=== PATIENT | male | born 1940 | race Caucasian/White ===

== ENCOUNTER 2024-03-26 23:32 | Emergency (ER) | payer MEDICARE ==
[~2024-03-26] VITALS: Ht 175.3 cm; Wt 61.4 kg
[2024-03-26 23:47] VITALS: TEMP 98.5
[2024-03-27 00:16] LABS: APPEARANCE,URINE CLEAR (CLEAR); BILIRUBIN,URINE NEGATIVE (NEGATIVE); COLOR,URINE LIGHT YELLOW (YELLOW); GLUCOSE, URINE (UA) NEGATIVE (NEGATIVE); KETONES,URINE NEGATIVE (NEGATIVE); LEUKOCYTE ESTERASE ,URINE NEGATIVE (NEGATIVE); NITRATE,URINE NEGATIVE (NEGATIVE); OCCULT BLOOD,URINE NEGATIVE (NEGATIVE); PH,URINE 5.5 (5.0-8.0); PH,URINE DRUG SCREEN 5.5 (5.0-8.0); PROTEIN,URINE NEGATIVE (NEGATIVE); SPECIFIC GRAVITIY, URINE 1.019 (1.003-1.030); UROBILINOGEN,URINE <=1.0 mg/dL (<=1.0)
[2024-03-27 00:24] LABS: ALCOHOL, URINE DRUG SCREEN NEGATIVE (NEGATIVE); AMPHET/METH SCREEN,URINE NEGATIVE (NEGATIVE); BARBITURATE SCREEN, URINE NEGATIVE (NEGATIVE); BENZODIAZEPINES SCREEN,URINE NEGATIVE (NEGATIVE); CANNABINOID SCREEN,URINE NEGATIVE (NEGATIVE); COCAINE SCREEN,URINE NEGATIVE (NEGATIVE); METHADONE SCREEN, URINE NEGATIVE (NEGATIVE); OPIATE SCREEN,URINE NEGATIVE (NEGATIVE); PHENCYCLIDINE SCREEN,URINE NEGATIVE (NEGATIVE)
[2024-03-27] MEDS: SODIUM CHLORIDE 0.9% 1,000 ML IV ONE (00:41)
[2024-03-27 00:57] LABS: BASOPHILS % (AUTO) 0.3 % (0.0-2.0); EOSINOPHILS % (AUTO) 0.4 % (1.0-6.0); HEMOGLOBIN 12.5 g/dL (13.5-17.5); LYMPHOCYTES # (AUTO) 0.6 K/uL (1.0-4.8); MEAN CORPUSCULAR HEMOGLOBIN 30.8 pg (26.0-34.0); MEAN CORPUSCULAR HGB CONC 32.8 G/dL (31.0-37.0); MEAN CORPUSCULAR VOLUME 94 fL (80-100); MONOCYTES # (AUTO) 0.8 K/uL (0.1-1.0); MONOCYTES % (AUTO) 7.9 % (2.0-9.0); NEUTROPHILS # (AUTO) 9.1 K/uL (1.8-7.7); PLATELET COUNT (AUTO) 231 K/uL (150-450); RED BLOOD CELL COUNT(AUTO) 4.05 MIL/uL (4.50-5.90); RED CELL DISTRIBUTION WIDTH 15.3 % (11.5-14.5); WHITE BLOOD COUNT (AUTO) 10.7 K/uL (4.5-11.0)
[2024-03-27 01:00] LABS: NEUTROPHILS % (AUTO) 85.4 % (40.0-70.0)
[2024-03-27 01:06] LABS: ANION GAP 9 mmol/L (8-16); CALCIUM, TOTAL 10.9 mg/dL (8.8-10.5); CARBON DIOXIDE 29 mmol/L (22-29); CHLORIDE 102 mmol/L (98-107); CREATININE 1.08 mg/dL (0.60-1.30); GLOMERULAR FILTR. RATE CALC > 60 mL/min (>60); GLUCOSE,RANDOM 113 mg/dL (70-110); POTASSIUM 4.1 mmol/L (3.5-5.1); SODIUM SERUM 140 mmol/L (136-145); UREA NITROGEN, BLOOD 31 mg/dL (7-18)
[2024-03-27 01:12] LABS: ALANINE AMINOTRANSFERASE 18 U/L (12-78); ALBUMIN 3.6 g/dL (3.4-5.0); ALKALINE PHOSPHATASE 169 U/L (46-116); ASPARTATE AMINOTRANSFERASE 21 U/L (15-37); BILIRUBIN,TOTAL 0.7 mg/dL (0.1-1.0); TOTAL PROTEIN, SERUM 7.2 g/dL (6.4-8.2)
[2024-03-27 02:05] VITALS: BP 143/92; PULSE 72; RESP 18; O2SAT 100
[2024-03-27] MEDS: LOPERAMIDE HCL 2 MG CAPSULE PO ONE (02:09)
== END 2024-03-27 02:53 | disposition home or self-care (01) ==
LOC: EMS 23:32
DX: R19.7 Diarrhea, unspecified (principal); F02.80 Dementia in other diseases classified elsewhere, unspecified severity, without behavioral disturbance, psychotic disturbance, mood disturbance, and anxiety; F12.90 Cannabis use, unspecified, uncomplicated; G20.A1 Parkinson's disease without dyskinesia, without mention of fluctuations; K59.00 Constipation, unspecified; F10.90 Alcohol use, unspecified, uncomplicated; M54.50 Low back pain, unspecified; Z98.890 Other specified postprocedural states; Z87.891 Personal history of nicotine dependence; Y90.9 Presence of alcohol in blood, level not specified
CPT/HCPCS: 80048; 80076; 80307; 81003; 83735; 85025; 96360; 99283; 99284; J7030; 36415-L1; 36415-TC

== ENCOUNTER 2024-03-27 16:54 | Inpatient (IN) | payer BC, MEDICARE ==
[~2024-03-27] VITALS: Ht 172.7 cm; Wt 48.7 kg
[2024-03-27] MEDS: SODIUM CHLORIDE 0.9% 1,000 ML IV ONE (18:07)
[2024-03-27 18:21] LABS: BASOPHILS % (AUTO) 0.2 % (0.0-2.0); EOSINOPHILS % (AUTO) 0.2 % (1.0-6.0); HEMATOCRIT 34.8 % (41-53); HEMOGLOBIN 11.4 g/dL (13.5-17.5); LYMPHOCYTES # (AUTO) 0.7 K/uL (1.0-4.8); LYMPHOCYTES % (AUTO) 6.9 % (22.0-44.0); MEAN CORPUSCULAR HEMOGLOBIN 30.8 pg (26.0-34.0); MEAN CORPUSCULAR HGB CONC 32.7 G/dL (31.0-37.0); MEAN CORPUSCULAR VOLUME 94 fL (80-100); MONOCYTES # (AUTO) 0.9 K/uL (0.1-1.0); MONOCYTES % (AUTO) 9.2 % (2.0-9.0); NEUTROPHILS # (AUTO) 7.9 K/uL (1.8-7.7); NEUTROPHILS % (AUTO) 83.5 % (40.0-70.0); PLATELET COUNT (AUTO) 226 K/uL (150-450); RED CELL DISTRIBUTION WIDTH 15.2 % (11.5-14.5); WHITE BLOOD COUNT (AUTO) 9.5 K/uL (4.5-11.0)
[2024-03-27 18:30] LABS: ANION GAP 9 mmol/L (8-16); CALCIUM, TOTAL 11.1 mg/dL (8.8-10.5); CARBON DIOXIDE 26 mmol/L (22-29); CHLORIDE 103 mmol/L (98-107); CREATININE 0.97 mg/dL (0.60-1.30); GLOMERULAR FILTR. RATE CALC > 60 mL/min (>60); GLUCOSE,RANDOM 105 mg/dL (70-110); POTASSIUM 3.7 mmol/L (3.5-5.1); SODIUM SERUM 138 mmol/L (136-145); UREA NITROGEN, BLOOD 29 mg/dL (7-18)
[2024-03-27] MEDS ORDERED: ONDANSETRON HCL 4 MG/2 ML VIAL IVP PRN (18:30)
[2024-03-27 18:31] LABS: LIPASE 23 U/L (16-77)
[2024-03-27 18:38] LABS: TROPONIN I-HIGH SENSITIVITY 8 ng/L (<76)
[2024-03-27 18:39] LABS: LACTIC ACID 1.6 mmol/L (0.4-2.0)
[2024-03-27 19:10] LABS: APPEARANCE,URINE CLEAR (CLEAR); BILIRUBIN,URINE NEGATIVE (NEGATIVE); COLOR,URINE LIGHT YELLOW (YELLOW); GLUCOSE, URINE (UA) NEGATIVE (NEGATIVE); KETONES,URINE NEGATIVE (NEGATIVE); LEUKOCYTE ESTERASE ,URINE NEGATIVE (NEGATIVE); NITRATE,URINE NEGATIVE (NEGATIVE); OCCULT BLOOD,URINE NEGATIVE (NEGATIVE); PH,URINE 6.5 (5.0-8.0); PROTEIN,URINE NEGATIVE (NEGATIVE); SPECIFIC GRAVITIY, URINE 1.011 (1.003-1.030); UROBILINOGEN,URINE <=1.0 mg/dL (<=1.0)
[2024-03-27 20:37] LABS: BACTERIA,URINE None Seen /HPF (None Seen); RBC,URINE None Seen /HPF (0-2); SQUAMOUS EPITHELIAL CELL,UR None Seen /LPF (None Seen); WBC,URINE None Seen /HPF (0-5)
[2024-03-27 22:12] VITALS: BP 139/84; PULSE 91; RESP 20; TEMP 98; O2SAT 97
[2024-03-27] MEDS: RINGERS SOLUTION,LACTATED 1,000 ML IV SCH (22:38)
[2024-03-27] MEDS: HEPARIN SODIUM,PORCINE 5,000 UNITS/ML VIAL SQ SCH (23:58)
[2024-03-28 04:51] VITALS: BP 128/79; PULSE 74; RESP 20; TEMP 98.1; O2SAT 97
[2024-03-28 08:40] VITALS: BP 144/84; PULSE 82; RESP 19; TEMP 98.2; O2SAT 98
[2024-03-28 08:51] LABS: BASOPHILS % (AUTO) 0.8 % (0.0-2.0); EOSINOPHILS % (AUTO) 0.7 % (1.0-6.0); HEMATOCRIT 35.8 % (41-53); HEMOGLOBIN 11.9 g/dL (13.5-17.5); LYMPHOCYTES # (AUTO) 0.6 K/uL (1.0-4.8); LYMPHOCYTES % (AUTO) 9.9 % (22.0-44.0); MEAN CORPUSCULAR HEMOGLOBIN 31.1 pg (26.0-34.0); MEAN CORPUSCULAR HGB CONC 33.3 G/dL (31.0-37.0); MEAN CORPUSCULAR VOLUME 94 fL (80-100); MONOCYTES # (AUTO) 0.6 K/uL (0.1-1.0); MONOCYTES % (AUTO) 9.9 % (2.0-9.0); NEUTROPHILS # (AUTO) 4.9 K/uL (1.8-7.7); NEUTROPHILS % (AUTO) 78.7 % (40.0-70.0); PLATELET COUNT (AUTO) 217 K/uL (150-450); RED BLOOD CELL COUNT(AUTO) 3.82 MIL/uL (4.50-5.90); RED CELL DISTRIBUTION WIDTH 14.8 % (11.5-14.5); WHITE BLOOD COUNT (AUTO) 6.2 K/uL (4.5-11.0)
[2024-03-28 09:28] LABS: ANION GAP 7 mmol/L (8-16); CALCIUM, TOTAL 10.8 mg/dL (8.8-10.5); CARBON DIOXIDE 28 mmol/L (22-29); CHLORIDE 102 mmol/L (98-107); CREATININE 0.93 mg/dL (0.60-1.30); GLOMERULAR FILTR. RATE CALC > 60 mL/min (>60); GLUCOSE,RANDOM 102 mg/dL (70-110); POTASSIUM 3.1 mmol/L (3.5-5.1); SODIUM SERUM 137 mmol/L (136-145); UREA NITROGEN, BLOOD 21 mg/dL (7-18)
[2024-03-28] MEDS ORDERED: IOHEXOL 350 MG/ML 100 ML VIAL ONE ×2 (11:17→11:54)
[2024-03-28] MEDS ORDERED: SODIUM CHLORIDE 0.9% 0 ML ONE (11:17)
[2024-03-28] MEDS ORDERED: POTASSIUM CHL 10 MEQ/WATER 50 ML IV PRN (11:30)
[2024-03-28] MEDS ORDERED: SODIUM CHLORIDE 0.9% 100 ML ONE (11:54)
[2024-03-28] MEDS ORDERED: SODIUM CHLORIDE 0.9% 500 ML IV ONE (12:33)
[2024-03-28] MEDS: POTASSIUM CHLORIDE 20 MEQ ER TABLET PO PRN (12:35)
[2024-03-28] MEDS: PIPERACILLIN/TAZO 3.375 GM/D5W 50 ML IV SCH (12:35)
[2024-03-28 16:00] VITALS: BP 116/82; PULSE 74; RESP 18; TEMP 98.1; O2SAT 98
[2024-03-28] MEDS: SODIUM PHOSPHATE,MONO-DIBASIC 133 ML ENEMA PR ONE (18:51)
[2024-03-28 20:31] VITALS: BP 119/72; PULSE 88; RESP 18; TEMP 98.2; O2SAT 98
[2024-03-29 08:13] VITALS: BP 108/72; PULSE 60; RESP 18; TEMP 97.7; O2SAT 95
[2024-03-29] MEDS ORDERED: BISMUTH SUBSALICYLATE 525 MG/30 ML SUSPENSION UDCUP PO PRN (12:45)
[2024-03-29 15:19] VITALS: BP 127/60; PULSE 68; RESP 18; TEMP 97.9; O2SAT 97
[2024-03-29 19:34] VITALS: BP 113/63; PULSE 65; RESP 18; TEMP 97.6; O2SAT 98
[2024-03-30 06:05] VITALS: BP 120/71; PULSE 58; RESP 18; TEMP 98; O2SAT 97
[2024-03-30 08:22] VITALS: BP 154/62; PULSE 74; RESP 18; TEMP 97.7; O2SAT 99
[2024-03-30 15:27] VITALS: BP 121/78; PULSE 80; RESP 18; TEMP 98.2; O2SAT 99
[2024-03-30 21:03] VITALS: BP 117/78; PULSE 79; RESP 18; TEMP 98.1; O2SAT 97
[2024-03-31 03:54] VITALS: BP 144/77; PULSE 66; RESP 20; TEMP 97.9; O2SAT 98
[2024-03-31 07:35] LABS: BASOPHILS % (AUTO) 0.8 % (0.0-2.0); EOSINOPHILS % (AUTO) 1.5 % (1.0-6.0); HEMATOCRIT 33.8 % (41-53); HEMOGLOBIN 11.2 g/dL (13.5-17.5); LYMPHOCYTES % (AUTO) 15.2 % (22.0-44.0); MEAN CORPUSCULAR HGB CONC 33.1 G/dL (31.0-37.0); MEAN CORPUSCULAR VOLUME 94 fL (80-100); MONOCYTES # (AUTO) 0.7 K/uL (0.1-1.0); MONOCYTES % (AUTO) 10.5 % (2.0-9.0); NEUTROPHILS # (AUTO) 4.5 K/uL (1.8-7.7); PLATELET COUNT (AUTO) 198 K/uL (150-450); RED BLOOD CELL COUNT(AUTO) 3.61 MIL/uL (4.50-5.90); RED CELL DISTRIBUTION WIDTH 14.6 % (11.5-14.5); WHITE BLOOD COUNT (AUTO) 6.3 K/uL (4.5-11.0)
[2024-03-31 08:08] LABS: ANION GAP 7 mmol/L (8-16); CALCIUM, TOTAL 10.3 mg/dL (8.8-10.5); CARBON DIOXIDE 28 mmol/L (22-29); CHLORIDE 106 mmol/L (98-107); CREATININE 0.82 mg/dL (0.60-1.30); GLOMERULAR FILTR. RATE CALC > 60 mL/min (>60); GLUCOSE,RANDOM 105 mg/dL (70-110); POTASSIUM 3.8 mmol/L (3.5-5.1); SODIUM SERUM 141 mmol/L (136-145); UREA NITROGEN, BLOOD 15 mg/dL (7-18)
[2024-03-31 08:13] VITALS: BP 133/75; PULSE 71; RESP 18; TEMP 98.4; O2SAT 97
[2024-03-31] MEDS ORDERED: METH-659 PO (12:15)
[2024-03-31] MEDS ORDERED: CHOL25TA4 PO (12:15)
[2024-03-31] MEDS ORDERED: DONE-51 PO (12:15)
[2024-03-31 15:11] LABS: APPEARANCE,URINE HAZY (CLEAR); BILIRUBIN,URINE NEGATIVE (NEGATIVE); COLOR,URINE LIGHT YELLOW (YELLOW); GLUCOSE, URINE (UA) NEGATIVE (NEGATIVE); KETONES,URINE NEGATIVE (NEGATIVE); LEUKOCYTE ESTERASE ,URINE NEGATIVE (NEGATIVE); NITRATE,URINE NEGATIVE (NEGATIVE); OCCULT BLOOD,URINE NEGATIVE (NEGATIVE); PROTEIN,URINE NEGATIVE (NEGATIVE); SPECIFIC GRAVITIY, URINE 1.007 (1.003-1.030); UROBILINOGEN,URINE <=1.0 mg/dL (<=1.0)
[2024-03-31 20:30] VITALS: BP 128/74; PULSE 82; RESP 18; TEMP 98.3; O2SAT 96
[2024-04-01 04:11] VITALS: BP 141/81; PULSE 78; RESP 18; TEMP 98; O2SAT 96
[2024-04-01 09:06] VITALS: BP 129/79; PULSE 75; RESP 16; TEMP 97.7; O2SAT 97
== END 2024-04-01 18:20 | disposition home health service (06) | DRG 388 ==
LOC: EMS 16:54 → EDH 18:32 → 4E 21:56
PROVIDERS: ADMIT Internal Medicine; ATTEND Internal Medicine
DX: K56.41 Fecal impaction (principal); E43 Unspecified severe protein-calorie malnutrition; G93.41 Metabolic encephalopathy; Z68.1 Body mass index [BMI] 19.9 or less, adult; R64 Cachexia; E83.52 Hypercalcemia; E86.0 Dehydration; G20.A1 Parkinson's disease without dyskinesia, without mention of fluctuations; K52.9 Noninfective gastroenteritis and colitis, unspecified; G89.29 Other chronic pain; F02.80 Dementia in other diseases classified elsewhere, unspecified severity, without behavioral disturbance, psychotic disturbance, mood disturbance, and anxiety; R15.9 Full incontinence of feces; R62.7 Adult failure to thrive; Z85.820 Personal history of malignant melanoma of skin; Z87.891 Personal history of nicotine dependence
CPT/HCPCS: 74177; 80048; 81001; 81003; 82271; 83605; 83690; 83735; 84132; 84484; 85025; 87045; 89055; 93005; 97116; 97162; 97166; 97530; 97535; 99285; G0378; J1644; J2543; J7040; J7050; J7120